=== PATIENT | male | born 1995 | race African-American/Black ===

== ENCOUNTER 2017-05-11 12:47 | Emergency (ER) | payer OTHER ==
--- NOTE | 2017-05-11 15:07 | ER Document Report ---
HPI - HPI Patient complains to provider of: Orthopedic screw sticking out of my ankle Onset: Other - This weekend Pain Level: 3 Context: 21[facility]old [facility] has a screw from previous ankle injury in 2013. Able to walk on it. [facility] and I told him to come to the emergency room. Associated Symptoms: None Exacerbated by: Denies Relieved by: Denies Similar symptoms previously: No Recently seen / treated by doctor: No - ROS ROS below otherwise negative: Yes Systems Reviewed and Negative: Yes All other systems reviewed and negative Past Medical History - General Information source: Patient - Social History Smoking Status: Never Smoker Frequency of alcohol use: None Drug Abuse: None Lives with: Family Family History: Reviewed & Not Pertinent - Medical History Medical History: Negative Past Surgical History: Reports: Hx Orthopedic Surgery - left ankle 2013 in [place] Vertical Provider Document - CONSTITUTIONAL Agree With Documented VS: Yes Exam Limitations: No Limitations - INFECTION CONTROL TRAVEL OUTSIDE OF THE [place] IN LAST 30 DAYS: No - NECK Neck: Supple - RESPIRATORY O2 Sat by Pulse Oximetry: 98 - MUSCULOSKELETAL/EXTREMETIES Musculoskeletal/Extremeties: MAEW, FROM, Non-Tender Notes: 3 mm of orthopedic screw protruding through non tented skin medial left ankle - NEURO Level of Consciousness: Awake, Alert Course - Re-evaluation Re-evalutation: 05/11/17 Screw is in the soft tissue not the bone the other hardware is in place. - Vital Signs Vital signs: Temp Pulse Resp BP Pulse Ox 98.1 F 67 17 126/74 H 98 05/11/17 12:52 05/11/17 12:52 05/11/17 12:52 05/11/17 12:52 05/11/17 12:52 Discharge - Discharge Clinical Impression: Left ankle screw in soft tissue Condition: Good Disposition: HOME, SELF-CARE Instructions: Augmentin ([facility]), Retained Subcutaneous Foreign Object ([facility]) Additional Instructions: [facility] and [facility] Keep the plastic medicine cup over the screw so will not snag on his socks to er if signs of infection, red, hot, pus Prescriptions: Amoxicillin/Potassium Clav [Augmentin 875-125 Tablet] 1 each PO BID #14 tablet
--- NOTE | 2017-05-11 15:57 | RADIOLOGY REPORT (SQ) ---
EXAM DESCRIPTION: ANKLE LEFT COMPLETE COMPLETED DATE/TIME: 05/11/2017 3:42 pm REASON FOR STUDY: screw backing out COMPARISON: None. NUMBER OF VIEWS: Three views. TECHNIQUE: AP, lateral, and oblique radiographic images acquired of the left ankle. LIMITATIONS: None. FINDINGS: MINERALIZATION: Normal. BONES: There are 2 long cannulated screws through the medial malleolus. There is a smaller screw светлана t is directed toward the medial malleolus but the head of the screw appears to be outside of the skin surface. Additional screws are present in the talus. JOINTS: Posttraumatic degenerative changes seen in the tibiotalar joint. SOFT TISSUES: No soft tissue swelling. No foreign body. OTHER: No other significant finding. IMPRESSION: There is a small screw in the soft tissues of the medial aspect of the ankle with the he ad of the screw apparently outside of the skin surface. TECHNICAL DOCUMENTATION: JOB ID: [id number] [employer]- All Rights Reserved Reading location - IP/workstation name: [email or web address]
[2017-05-11 17:12] VITALS: BP 135/78
== END 2017-05-11 17:14 | disposition home or self-care (01) ==
LOC: ER 12:47
DX: Z47.89 Encounter for other orthopedic aftercare (principal)
CPT/HCPCS: 99283